=== PATIENT | female | born 2000 | race Caucasian/White ===

== ENCOUNTER 2018-12-14 05:24 | Emergency (ER) | payer OTHER ==
[~2018-12-14] VITALS: Ht 167.6 cm; Wt 54.4 kg
[2018-12-14] MEDS ORDERED: ZOFRAN4 MG PO (06:44)
[2018-12-14] MEDS ORDERED: ISENTRESS400 MG PO (06:44)
[2018-12-14] MEDS ORDERED: TRUVADA 200 MG1 EACH PO (06:44)
== END 2018-12-14 12:20 | disposition home or self-care (01) ==
LOC: ED 05:24
DX: T74.21XA Adult sexual abuse, confirmed, initial encounter (principal); J45.909 Unspecified asthma, uncomplicated
CPT/HCPCS: 80069; 80076; 82977; 83615; 84703; 85025; 86703; 86706; 86707; 96372; 99284-25; J0696

== ENCOUNTER 2019-03-18 21:49 | Emergency (ER) | payer OTHER ==
[~2019-03-18] VITALS: Ht 172.7 cm; Wt 59.0 kg
--- OUTSIDE RECORDS SUMMARY | ~2019-03-18 | XMS | Clinical Summary ---
Demographics + + + | Address | [address] | | | [place] [address] | + + + | Home Phone | | + + + | Preferred Language | Unknown | + + + | Marital Status | Single | + + + | Episcopal Affiliation | Unknown | + + + | Race | Unknown | + + + | Ethnic Group | Unknown | + + + Author + + + | Author | [facility] | | | and [place] | + + + | Organization | [facility] | | | and [place] | + + + | Address | Unknown | + + + | Phone | Unavailable | + + + Support + + +---------+ + | Name | Relationship | Address | Phone | + + +---------+ + | None,Provided | ECON | Unknown | | + + +---------+ + Care Team Providers + +------+ + | Care Budget Manager Name | Role | Phone | + +------+ + | Manisha Rodríguez MD | PP | | + +------+ + Allergies No Known Allergies Medications + + + +---------+------+------+-------+ | Medication | Sig | Dispensed | Refills | Star | End | Statu | | | | | | t | Date | s | | | | | | Date | | | + + + +---------+------+------+-------+ | albuterol 90 | Inhale 2 puffs into | | 0 | | | Activ | | mcg/puff inhaler | the lungs every 6 | | | | | e | | | hours as needed for | | | | | | | | Wheezing. | | | | | | + + + +---------+------+------+-------+ Active Problems Not on file Social History + +-------+ +--------+------+ | Tobacco Use | Types | Packs/Day | Years | Date | | | | | Used | | + +-------+ +--------+------+ | Never Assessed | | | | | + +-------+ +--------+------+ + + + | Sex Assigned at | Date Recorded | | | | + + + | Not on file | | + + + + + + + | Job Start Date | Occupation | Industry | + + + + | Not on file | Not on file | Not on file | + + + + + + + + | Travel History | Travel Start | Travel End | + + + + + + | No recent travel history available. | + + Last Filed Vital Signs + + + + | Vital Sign | Reading | Time Taken | + + + + | Blood Pressure | 98/65 | 09/04/2018 2359 PST | + + + + | Pulse | 105 | 09/05/20188 PST | + + + + | Temperature | - | - | + + + + | Respiratory Rate | 22 | 09/05/20188 PST | + + + + | Oxygen Saturation | 100% | 09/05/20188 PST | + + + + | Inhaled Oxygen | - | - | | Concentration | | | + + + + | Weight | 54.4 kg (120 lb) | 09/04/20182358 PST | + + + + | Height | 160 cm (5' 3") | 09/04/20182358 PST | + + + + | Body Mass Index | 21.26 | 09/04/2018 2359 PST | + + + + Plan of Treatment + + + + + | Health Maintenance | Due Date | Last Done | Comments | + + + + + | Well Child Check | | | | | | 2 | | | + + + + + | Vaccine: HPV (1 - | | | | | Female 3-dose | 4 | | | | series) | | | | + + + + + | Vaccine: | | | | | Dtap/Tdap/Td (1 - | 8 | | | | Tdap) | | | | + + + + + | Vaccine: Influenza | | | | | (Season Ended) | 9 | | | + + + + + Results Not on filefrom Last 3 Months Insurance + +--------+ +--------+ +---------+--------+ | Payer | Benefi | Subscriber | Effect | Phone | Address | Type | | | t Plan | ID | nan | | | | | | / | | Dates | | | | | | Group | | | | | | + +--------+ +--------+ +---------+--------+ | [employer] | [employer] | [id number] | | [phone] | | Medica | | MEDICAID HMO | HEALTH | | [id number]-Pr | 1 | | id | | | MDCD | | esent | | | | | | [place] | | | | | | + +--------+ +--------+ +---------+--------+ + +--------+ +--------+ + + | Guarantor Name | Accoun | Relation to | Date | Phone | Billing Address | | | t Type | Patient | of | | | | | | | | | | + +--------+ +--------+ + + | Valerie Humphreys | Person | Self [birth year] | [address] | | [place] | [place] | | 2001 | [phone] | [place] [address] | | | rm | | | [address] (Home) | | + +--------+ +--------+ + + Advance Directives Patient has advance care planning documents on file. For more information, please contact:[facility] and [facility] [place] [address]
--- OUTSIDE RECORDS SUMMARY | ~2019-03-18 | XMS | Clinical Summary ---
Demographics + + + | Address | [address] | | | [place] [address] | + + + | Home Phone | | + + + | Preferred Language | Unknown | + + + | Marital Status | Single | + + + | Muslim Affiliation | Unknown | + + + | Race | Unknown | + + + | Ethnic Group | Unknown | + + + Author + + + | Author | [facility] | | | and [place] | + + + | Organization | [facility] | | | and [...] Team Providers + +------+ + | Care Repairer [employer] Name | Role | Phone | + [...] | [employer] | [employer] | [id number] | | [phone] | | Medica | [...] [address] | | 2001 | [phone] | [place] [address] | | | rm | | | 8 (Home) | | + +--------+ +--------+ + + Advance Directives Patient has advance care planning documents on file. For more information, please contact:[facility] and [facility] [place] [address]
[~2019-03-18 21:49] MED LIST: ISENTRESS400 MG PO; TRUVADA 200 MG1 EACH PO; ZOFRAN4 MG PO
[2019-03-18] MEDS ORDERED: ADVAIR 100-501 EACH INH (22:00)
[2019-03-18] MEDS ORDERED: IBUPROFEN600 MG PO (22:19)
== END 2019-03-18 22:33 | disposition home or self-care (01) ==
LOC: ED 21:49
DX: S93.402A Sprain of unspecified ligament of left ankle, initial encounter (principal); X50.9XXA Other and unspecified overexertion or strenuous movements or postures, initial encounter; J45.909 Unspecified asthma, uncomplicated; Z88.5 Allergy status to narcotic agent; Z79.899 Other long term (current) drug therapy
CPT/HCPCS: 73630; 99283